=== PATIENT | female | born 1980 | race Caucasian/White ===

== ENCOUNTER → 2019-05-28 10:36 | Outpatient (CLI) | payer OTHER, SELFPAY | PROVIDERS: Family Provider Family Medicine; PCP Family Medicine; Visit Provider Physician Assistant | DX: R30.0 Dysuria (principal) | CPT/HCPCS: 87077; 87086; 87186 ==

== ENCOUNTER → 2021-07-22 09:37 | Outpatient (CLI) | payer OTHER, SELFPAY | PROVIDERS: Family Provider Family Medicine; PCP Family Medicine; Visit Provider Physician Assistant | DX: R30.0 Dysuria (principal) | CPT/HCPCS: 87077; 87086; 87186 ==

== ENCOUNTER → 2024-06-15 11:33 | Outpatient (CLI) | payer BC, SELFPAY ==
[2024-06-15 12:17] LABS: Hemoglobin A1C% w Est Avg Glu 10.7 % (4.0-6.0)
[2024-06-15 12:34] LABS: Cholesterol 249 mg/dL (140-199); HDL Cholesterol 57 mg/dL (40-60); LDL Cholesterol Calculated 163 mg/dL (<100); Triglycerides 144 mg/dL (35-150)
[2024-06-16 13:36] LABS: Candida species Negative (Negative); Gardnerella vaginalis Positive (Negative); Trichomoas vaginalis Negative (Negative)
== END ==
PROVIDERS: Family Provider Family Medicine; PCP Family Medicine; Referring Provider Student in an Organized Health Care Education/Training Program; Visit Provider Student in an Organized Health Care Education/Training Program
DX: Z00.00 Encounter for general adult medical examination without abnormal findings (principal); N89.8 Other specified noninflammatory disorders of vagina
CPT/HCPCS: 36415; 80061; 83036; 87480; 87510; 87660

== ENCOUNTER → 2024-06-19 15:52 | Outpatient (CLI) | payer BC, SELFPAY ==
--- NOTE | 2024-06-19 15:54 | DI.MG.S_ITS ---
BILATERAL DIGITAL SCREENING MAMMOGRAM 3D/2D WITH CAD: 06/19/2024 CLINICAL: Baseline exam. Routine screening. Family history of breast cancer. No prior exams were available for comparison. The breasts are heterogeneously dense, which may obscure small masses (category c / 51-75% glandular tissue). Current study was also evaluated with a Computer Aided Detection (CAD) system. No significant masses, calcifications, or other findings are seen in either breast. IMPRESSION: NEGATIVE There is no mammographic evidence of malignancy. A 1 year screening mammogram is recommended. Based on Tyrer-Cuzick model (a risk assessment model), the patient's lifetime risk is 22.4% and her 10 year risk is 3.8%. If a patient has an elevated risk, a more comprehensive evaluation should be considered and/or a referral to a genetic counselor. The [employer], [employer], and NCCN Guidelines advise the consideration of Breast MRI as an adjunct to screening mammography in patients whose Lifetime risk to develop breast cancer is 20% or higher. This exam was interpreted at Station ID: [id number]. NOTE: For mammograms, a report in lay terms will be sent to the patient. Approximately 15% of breast malignancies will not be visualized mammographically. In the management of a palpable breast mass, a negative mammogram must not discourage biopsy of a clinically suspicious lesion. Electronically Signed By: Ty dash/sunny:06/20/2024 09:52:46 letter sent: Normal Exam ACR BI-RADS Category 1: Negative
== END ==
PROVIDERS: Referring Provider Student in an Organized Health Care Education/Training Program; Visit Provider Student in an Organized Health Care Education/Training Program
DX: Z12.31 Encounter for screening mammogram for malignant neoplasm of breast (principal); Z80.3 Family history of malignant neoplasm of breast; R92.333 Mammographic heterogeneous density, bilateral breasts
CPT/HCPCS: 77063; 77067

== ENCOUNTER → 2024-07-17 15:54 | Outpatient (CLI) | payer BC, SELFPAY ==
--- NOTE | 2024-08-28 08:24 | DIAB.MNT ---
Initial Diabetes Medical Nutrition Therapy Assessment Name: Esme Luna Date: 07/17/24 Time: 415-530p Dx: Type II Diabetes Preferred Learning Style: Watching, doing, reading, listening. Esme presents for initial Dm visit, accompanied by , Wilfredo. Endorses FH of DM with both parents and brother. States she also had GDM in 2006. Recent HGA1c of 10.7%. Reports stress and stress eating. Most stress from busy schedule with work and kids' schedule. Other ways she tries to manage stress is with volleyball and listening to music. Endorses symptoms of hyperglycemia, including excessive thirst and blurry vision. Also endorses craving to chew ice, anemia? States her main questions today is to learn how eating can help DM and what causes BG changes. 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 Diet Recall: 730a: coffee and milk sweetened , possibly egg +/- bread 130-2p: 1-2c rice with protein +/- veggies 6-10p: ramen or Renetta x 3c with chx/eggs and veggies snacking; sweets, shrimp chips, rice crackers, fruit, soaked renay in milk and blend with bananan water 16oz x 6-8 no soda no juice Anthropometrics: Ht: 5'1 Wt: 150# Physical Activity: beach volleyball 1-2x per week Self-Monitoring Blood Glucose: None, RD messaged provider group for meter and supplies. 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 Provided appropriate educational handouts. Discussed the following topics: Completed intake assessment. Discussed barriers to care. Pathophysiology of T2DM HgA1c, its correlation to blood glucose numbers, and rationale for goal Importance of self-monitoring, how often, and when to check. Suggested checking at different times to evaluate meals DM medications, precautions, and safety Plate Method, impact of macronutrients on blood sugar, meal timing, carbohydrate counting, pairing macronutrients and spreading out carbohydrates for better blood glucose management Recommended servings for carbohydrates at meals and snacks Heart health nutrition Brainstormed appropriate meal plan based on food preferences Role of physical activity and following provider guidelines for safety Created SMART goals for patient self-care and success. Goals: Try to eat q 3-4 hours Add breakfast consistently Try adding quinoa and brown rice staff occupational therapist meter and check FBG Follow-up: PATRICIA HAYES follow-up in 2-3 weeks Ella Pederson RDN, ABIGAIL Certified Diabetes Care and Plastic Extruding Machine Operator P: [phone] Thank you for this referral
== END ==
LOC: DIET 15:55
PROVIDERS: PCP Family Medicine; Referring Provider Student in an Organized Health Care Education/Training Program
DX: E11.69 Type 2 diabetes mellitus with other specified complication (principal); E78.5 Hyperlipidemia, unspecified; Z71.3 Dietary counseling and surveillance; Z83.3 Family history of diabetes mellitus
CPT/HCPCS: 97802

== ENCOUNTER → 2024-08-31 12:58 | Outpatient (CLI) | payer BC, SELFPAY ==
--- NOTE | 2024-08-31 14:01 | DIAB.MNTFU ---
Follow-up Diabetes Medical Nutrition Therapy Assessment Name: Esme Luna Date: 08/31/24 Time: 110-2p Dx: Type II Diabetes Esme presents for follow-up Dm visit. Endorses FH of DM with both parents and brother. States she also had GDM in 2006. Recent HGA1c of 10.7%. States insurance will not cover a meter, but will cover Dexcom G7, which is unusual given not on insulin. She is hesitant to try CGM, though may be open to a sample. Has not started metformin due to some fears of being on a med permanently and wants to know more about dosing and safety. Reports less stress eating lately. Also no longer craving ice. Increased protein intake and reduce CHO. Reports blurry vision has really improved. Excessive thirst has improved. D/c of coffee since last visit. 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 Diet Recall: 11a-12p: egg, 1 slice bread OR cheese and shake (1/2 banana with 1/4c berries, pb x 1 TBS, 1/2TBS honey, renay, almond milk). 2p: salad with protein, 5-6p: salad, protein, +/- shake water 12oz x 5-6 tea: 16-20oz Limits rice to 0-3/4c in a sitting. Limiting pasta portions and frequency. Anthropometrics: Ht: 5'1 Wt: 144# reported 08/2024 150# 06/2024 Physical Activity: beach volleyball 1-2x per week. Thinking resistance training lately. Low energy lately, but could be r/t reduced caffeine. Self-Monitoring Blood Glucose: Bought OTC meter and strips. Diabetes Medications: 500mg Metformin -- not started -- provider has encouraged titration up to 1000mg BID. 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 Provided appropriate educational handouts. Discussed the following topics: BG review and goals HgA1c goals Metformin safety, titration, and action Nutrition recs for DM PHysical activity Created SMART goals for patient self-care and success. Goals: Try to eat q 3-4 hours- improved Add breakfast consistently - not met Try adding quinoa and brown rice- d/c supervisor mattress and boxsprings meter and check FBG- met Start Metformin and titrate up to rec dose- new Follow-up: PATRICIA HAYES follow-up in 4 weeks. May try CGM sample next visit. Ella Pederson RDN, CDCES Certified Diabetes Care and Electronics Teacher P: [phone] Thank you for this referral
== END ==
PROVIDERS: PCP Family Medicine; Referring Provider Family Medicine
DX: E11.69 Type 2 diabetes mellitus with other specified complication (principal); Z71.3 Dietary counseling and surveillance; Z83.3 Family history of diabetes mellitus; T38.3X6A Underdosing of insulin and oral hypoglycemic [antidiabetic] drugs, initial encounter; Z91.148 Patient's other noncompliance with medication regimen for other reason; E78.5 Hyperlipidemia, unspecified
CPT/HCPCS: 97803

== ENCOUNTER → 2024-10-15 13:17 | Outpatient (CLI) | payer BC, SELFPAY ==
[2024-10-15 14:12] LABS: Add Manual Diff / Slide Review NO; Basophils Absolute Auto 100 /uL (0-100); Basophils Percent Auto 1.7 % (0-2); Eosinophils Absolute Auto 200 /uL (0-450); Eosinophils Percent Auto 4.7 % (2-4); Hematocrit 31.8 % (36-46); Hemoglobin 9.8 g/dL (12.0-16.0); Lymphocytes Absolute Auto 2500 /uL (1100-4500); Lymphocytes Percent Auto 47.4 % (25-40); Mean Corpuscular HGB Conc 30.8 % (30-36); Mean Corpuscular Hemoglobin 21.5 PG (26-34); Mean Corpuscular Volume 69.8 fL (80-100); Monocytes Absolute Auto 400 /uL (0-900); Monocytes Percent Auto 7.2 % (3-14); Neutrophils Absolute Auto 2100 /uL (1500-7000); Platelet Count 376 X10^3/uL (150-400); Red Blood Cell Count 4.56 X10^6/uL (4.0-5.2); Red Cell Distribution Width 16.8 % (11.6-14.8); White Blood Cell Count 5.3 X10^3/uL (4.5-11.0)
[2024-10-15 14:21] LABS: Alanine Aminotransferase 20 IU/L (<35); Albumin 4.7 g/dL (3.5-5.0); Albumin Globulin Ratio 1.5 (1.0-2.8); Alkaline Phosphatase 87 U/L (38-126); Aspartate Aminotransferase 36 IU/L (14-36); BUN Creatinine Ratio 15.8 (6-22); Bilirubin Total 0.6 mg/dL (0.2-1.3); Blood Urea Nitrogen 12 mg/dL (7-17); Calcium 9.6 mg/dL (8.4-10.2); Carbon Dioxide 24 mmol/L (22-32); Chloride 100 mmol/L (98-107); Estimated Glomerular Filt Rate > 60 mL/min (>60); Globulin 3.2 g/dL (1.7-4.1); Glucose 173 mg/dL (70-99); HEMOLYSIS < 15 (0-50); Potassium 4.3 mmol/L (3.4-5.1); Sodium 135 mmol/L (137-145); Total Protein 7.9 g/dL (6.3-8.2)
[2024-10-15 14:30] LABS: Anisocytosis 2+; Microcytosis 1+
[2024-10-15 15:34] LABS: Creatinine Urine Random 55.26 mg/dL
[2024-10-15 15:39] LABS: Microalbumin Urine Random < 0.6 mg/dL (0-1.6)
== END ==
PROVIDERS: PCP Family Medicine; Referring Provider Family Medicine; Visit Provider Family Medicine
DX: E11.69 Type 2 diabetes mellitus with other specified complication (principal); E78.5 Hyperlipidemia, unspecified
CPT/HCPCS: 36415; 80053; 82043; 82570; 85025